=== PATIENT | male | born 1980 ===

== ENCOUNTER 2018-06-01 11:42 | Inpatient (IN) | payer OTHER ==
[2018-06-01] MEDS ORDERED: LORazepam 2 MG/ML INJ IV STA (12:10)
[2018-06-01] MEDS ORDERED: SODIUM CHLORIDE 0.9% 1,000 ML IV STA (12:10)
[2018-06-01] MEDS ORDERED: SODIUM CHLORIDE 0.9% 1,000 ML with MVI, ADULT NO.4 WITH VIT K 10 ML, THIAMINE 100 MG, F... IV ONE ×4 (12:11)
--- NOTE | 2018-06-01 12:13 | ED ---
Alcohol HPI - General Chief Complaint: Alcohol Stated Complaint: alcohol problems Time Seen by Provider: 06/01/18 12:00 Source: patient, RN notes reviewed Mode of arrival: ambulatory Limitations: no limitations - History of Present Illness Initial Comments: This is a 38-year-old male with a history of alcohol abuse who states she's been on a 28 bands ever since his mother on the first of this month. Sure how much she's been drinking he does admit to drinking today. He states she's been having auditory and visual hallucinations. He is been blacking out every day. He states he does desire rehab. MD Complaint: alcohol intoxication, alcohol withdrawal, desires rehab - Related Data Home Medications Medication Instructions Recorded Confirmed Tetrahydrozoline 0.05% Ophth 1 drop BOTH EYES QID 06/01/18 06/01/18 [Visine Eye Drops] Allergies Allergy/AdvReac Type Severity Reaction Status Date / Time ragweed pollen Allergy sneezing Verified 06/01/18 12:22 Review of Systems ROS Statement: Those systems with pertinent positive or pertinent negative responses have been documented in the HPI. ROS Other: All systems not noted in ROS Statement are negative. Past Medical History Additional Past Medical History / Comment(s): alcoholism, insomnia and chronic left wrist pain, medical marijuan History of Any Multi-Drug Resistant Organisms: None Reported Past Surgical History: Orthopedic Surgery Additional Past Surgical History / Comment(s): left wrist Past Psychological History: No Psychological Hx Reported Smoking Status: Never smoker Past Alcohol Use History: Abuse, Daily Past Drug Use History: Marijuana General Exam - General Exam Comments Initial Comments: This a well-developed well-nourished awake alert male oriented 3. He does have the smell of alcohol conjoiners on his breath Limitations: no limitations General appearance: alert, anxious Head exam: Present: atraumatic, normocephalic, normal inspection Eye exam: Present: normal appearance, PERRL, EOMI. Absent: scleral icterus, conjunctival injection, periorbital swelling ENT exam: Present: mucous membranes dry Neck exam: Present: normal inspection. Absent: tenderness, meningismus, lymphadenopathy Respiratory exam: Present: normal lung sounds bilaterally. Absent: respiratory distress, wheezes, rales, rhonchi, stridor Cardiovascular Exam: Present: normal rhythm, tachycardia, normal heart sounds. Absent: systolic murmur, diastolic murmur, rubs, gallop, clicks GI/Abdominal exam: Present: soft, normal bowel sounds. Absent: distended, tenderness, guarding, rebound, rigid Extremities exam: Present: normal inspection, full ROM, normal capillary refill. Absent: tenderness, pedal edema, joint swelling, calf tenderness Back exam: Present: normal inspection Neurological exam: Present: alert, oriented X3, CN II-XII intact Psychiatric exam: Present: normal affect, normal mood Skin exam: Present: warm, dry, intact, normal color. Absent: rash Course Vital Signs 06/01/18 06/01/18 11:51 15:12 Temperature 97.8 F Pulse Rate 107 H 92 Respiratory 18 16 Rate Blood Pressure 157/96 132/65 O2 Sat by Pulse 94 L 97 Oximetry Medical Decision Making - Medical Decision Making I did discuss findings with the patient he does demonstrate evidence of pancreatitis as well as alcohol withdrawal symptoms. The patient was seen by Dr. Cao in the emergency department. Patient will be admitted for inpatient evaluation. - Lab Data Result diagrams: 06/01/18 13:02 06/01/18 13:02 Lab Results 06/01/18 06/01/18 06/01/18 Range/Units 13:02 13:02 13:02 WBC 9.0 (3.8-10.6) k/uL RBC 4.99 (4.30-5.90) m/uL Hgb 15.6 (13.0-17.5) gm/dL Hct 47.8 (39.0-53.0) % MCV 95.9 (80.0-100.0) fL MCH 31.3 (25.0-35.0) pg MCHC 32.6 (31.0-37.0) g/dL RDW 13.4 (11.5-15.5) % Plt Count 343 (150-450) k/uL Neutrophils % 71 % Lymphocytes % 22 % Monocytes % 3 % Eosinophils % 1 % Basophils % 1 % Neutrophils # 6.4 (1.3-7.7) k/uL Lymphocytes # 2.0 (1.0-4.8) k/uL Monocytes # 0.3 (0-1.0) k/uL Eosinophils # 0.1 (0-0.7) k/uL Basophils # 0.1 (0-0.2) k/uL PT 9.9 (9.0-12.0) sec INR 1.0 (<1.2) Sodium 136 L (137-145) mmol/L Potassium 4.4 (3.5-5.1) mmol/L Chloride 98 (98-107) mmol/L Carbon Dioxide 20 L (22-30) mmol/L Anion Gap 18 mmol/L BUN 9 (9-20) mg/dL Creatinine 0.86 (0.66-1.25) mg/dL Est GFR (CKD-EPI)AfAm >90 (>60 ml/min/1.73 sqM) Est GFR (CKD-EPI)NonAf >90 (>60 ml/min/1.73 sqM) Glucose 113 H (74-99) mg/dL Calcium 10.0 (8.4-10.2) mg/dL Magnesium 2.0 (1.6-2.3) mg/dL Total Bilirubin 0.9 (0.2-1.3) mg/dL AST 66 H (17-59) U/L ALT 77 H (21-72) U/L Alkaline Phosphatase 117 (38-126) U/L Total Protein 8.4 H (6.3-8.2) g/dL Albumin 5.2 H (3.5-5.0) g/dL Amylase 131 H (30-110) U/L Lipase 1128 H (23-300) U/L Urine Color Urine Appearance (Clear) Urine pH (5.0-8.0) Ur Specific [place] (1.001-1.035) Urine Protein (Negative) Urine Glucose (UA) (Negative) Urine Ketones (Negative) Urine Blood (Negative) Urine Nitrite (Negative) Urine Bilirubin (Negative) Urine Urobilinogen (<2.0) mg/dL Ur Leukocyte Esterase (Negative) Urine RBC (0-5) /hpf Urine WBC (0-5) /hpf Urine Mucus (None) /hpf Urine Opiates Screen (NotDetected) Ur Oxycodone Screen (NotDetected) Urine Methadone Screen (NotDetected) Ur Propoxyphene Screen (NotDetected) Ur Barbiturates Screen (NotDetected) U Tricyclic Antidepress (NotDetected) Ur Phencyclidine Scrn (NotDetected) Ur Amphetamines Screen (NotDetected) U Methamphetamines Scrn (NotDetected) U Benzodiazepines Scrn (NotDetected) Urine Cocaine Screen (NotDetected) U Marijuana (THC) Screen (NotDetected) Serum Alcohol 221 mg/dL 06/01/18 Range/Units 13:53 WBC (3.8-10.6) k/uL RBC (4.30-5.90) m/uL Hgb (13.0-17.5) gm/dL Hct (39.0-53.0) % MCV (80.0-100.0) fL MCH (25.0-35.0) pg MCHC (31.0-37.0) g/dL RDW (11.5-15.5) % Plt Count (150-450) k/uL Neutrophils % % Lymphocytes % % Monocytes % % Eosinophils % % Basophils % % Neutrophils # (1.3-7.7) k/uL Lymphocytes # (1.0-4.8) k/uL Monocytes # (0-1.0) k/uL Eosinophils # (0-0.7) k/uL Basophils # (0-0.2) k/uL PT (9.0-12.0) sec INR (<1.2) Sodium (137-145) mmol/L Potassium (3.5-5.1) mmol/L Chloride (98-107) mmol/L Carbon Dioxide (22-30) mmol/L Anion Gap mmol/L BUN (9-20) mg/dL Creatinine (0.66-1.25) mg/dL Est GFR (CKD-EPI)AfAm (>60 ml/min/1.73 sqM) Est GFR (CKD-EPI)NonAf (>60 ml/min/1.73 sqM) Glucose (74-99) mg/dL Calcium (8.4-10.2) mg/dL Magnesium (1.6-2.3) mg/dL Total Bilirubin (0.2-1.3) mg/dL AST (17-59) U/L ALT (21-72) U/L Alkaline Phosphatase (38-126) U/L Total Protein (6.3-8.2) g/dL Albumin (3.5-5.0) g/dL Amylase (30-110) U/L Lipase (23-300) U/L Urine Color Light Yellow Urine Appearance Clear (Clear) Urine pH 5.5 (5.0-8.0) Ur Specific [place] 1.010 (1.001-1.035) Urine Protein 1+ H (Negative) Urine Glucose (UA) Negative (Negative) Urine Ketones 1+ H (Negative) Urine Blood Trace H (Negative) Urine Nitrite Negative (Negative) Urine Bilirubin Negative (Negative) Urine Urobilinogen <2.0 (<2.0) mg/dL Ur Leukocyte Esterase Negative (Negative) Urine RBC <1 (0-5) /hpf Urine WBC <1 (0-5) /hpf Urine Mucus Rare H (None) /hpf Urine Opiates Screen Not Detected (NotDetected) Ur Oxycodone Screen Not Detected (NotDetected) Urine Methadone Screen Not Detected (NotDetected) Ur Propoxyphene Screen Not Detected (NotDetected) Ur Barbiturates Screen Not Detected (NotDetected) U Tricyclic Antidepress Not Detected (NotDetected) Ur Phencyclidine Scrn Not Detected (NotDetected) Ur Amphetamines Screen Not Detected (NotDetected) U Methamphetamines Scrn Not Detected (NotDetected) U Benzodiazepines Scrn Not Detected (NotDetected) Urine Cocaine Screen Not Detected (NotDetected) U Marijuana (THC) Screen Detected H (NotDetected) Serum Alcohol mg/dL - Radiology Data Radiology results: report reviewed (I did review the imaging and report no acute findings.), image reviewed Disposition Clinical Impression: Alcoholic intoxication, Alcohol withdrawal syndrome, Acute pancreatitis Disposition: ADMITTED IP TO THIS [facility] Condition: Stable Referrals: None,Stated [Primary Care Provider] - 1-2 days
[2018-06-01 13:16] LABS: Basophils # (A) 0.1 k/uL (0-0.2); Basophils % (A) 1 %; Eosinophils # (A) 0.1 k/uL (0-0.7); Eosinophils % (A) 1 %; HCT 47.8 % (39.0-53.0); HGB 15.6 gm/dL (13.0-17.5); Lymphocytes % (A) 22 %; MCH 31.3 pg (25.0-35.0); MCHC 32.6 g/dL (31.0-37.0); MCV 95.9 fL (80.0-100.0); Mean Platelet Volume 6.4; Monocytes # (A) 0.3 k/uL (0-1.0); Monocytes % (A) 3 %; Neutrophils # (A) 6.4 k/uL (1.3-7.7); Neutrophils % (A) 71 %; Platelet Count 343 k/uL (150-450); RBC 4.99 m/uL (4.30-5.90); RDW 13.4 % (11.5-15.5)
[2018-06-01 13:22] LABS: Prothrombin Time 9.9 sec (9.0-12.0)
[2018-06-01 13:26] LABS: ALT 77 U/L (21-72); AST 66 U/L (17-59); Albumin 5.2 g/dL (3.5-5.0); Alkaline Phosphatase 117 U/L (38-126); Amylase 131 U/L (30-110); Anion Gap 18 mmol/L; Blood Urea Nitrogen 9 mg/dL (9-20); Carbon Dioxide 20 mmol/L (22-30); Chloride 98 mmol/L (98-107); Glucose 113 mg/dL (74-99); Lipase 1128 U/L (23-300); Potassium 4.4 mmol/L (3.5-5.1); Sodium 136 mmol/L (137-145); Total Bilirubin 0.9 mg/dL (0.2-1.3); Total Protein 8.4 g/dL (6.3-8.2)
[2018-06-01 13:39] LABS: Alcohol 221 mg/dL
[2018-06-01 14:08] LABS: Appearance,Urine Clear (Clear); Bilirubin,Urine Negative (Negative); Blood,Urine Trace (Negative); Color,Urine Light Yellow; Glucose,Urine (UA) Negative (Negative); Ketones,Urine 1+ (Negative); Leukocyte Esterase,Urine Negative (Negative); Mucus,Urine Rare /hpf; Nitrite,Urine Negative (Negative); PH, Urine 5.5 (5.0-8.0); Protein,Urine 1+ (Negative); RBC,Urine <1 /hpf (0-5); Urobilinogen,Urine <2.0 mg/dL (<2.0); WBC,Urine <1 /hpf (0-5)
[2018-06-01 14:23] LABS: Amphetamine Screen,Urine Not Detected (NotDetected); Barbiturate Screen,Urine Not Detected (NotDetected); Benzodiazepines Screen,Urine Not Detected (NotDetected); Cocaine Screen,Urine Not Detected (NotDetected); Methadone Screen, Urine Not Detected (NotDetected); Opiate Screen,Urine Not Detected (NotDetected); Oxycodone Screen, Urine Not Detected (NotDetected); Phencyclidine Screen,Urine Not Detected (NotDetected); Tricyclic Antidepressant,Urine Not Detected (NotDetected); Urn Cannabinoid Scrn Detected (NotDetected)
--- NOTE | 2018-06-01 14:26 | CT ---
EXAMINATION TYPE: CT brain wo con DATE OF EXAM: 06/01/2018 COMPARISON: None HISTORY: Hallucinations, going through detox CT DLP: 1201 mGycm. Automated Exposure Control for Dose Reduction was Utilized. TECHNIQUE: CT scan of the head is performed without contrast. FINDINGS: There is no acute intracranial hemorrhage or midline shift identified. Mild ventricular a nd sulcal prominence consistent with mild diffuse cerebral atrophy is noted. Serrano-white matter diffe rentiation is preserved. There is 1.7 cm mucous retention cyst or polyp in the anterior inferior left maxillary sinus. The globes are intact and the visualized sinuses otherwise are clear. IMPRESSION: No acute intracranial hemorrhage or midline shift is seen.
[2018-06-01] MEDS ORDERED: HALOPERIDOL LACTATE 5 MG/ML 1 ML VIAL IVP STA (14:43)
[2018-06-01] MEDS ORDERED: HALOPERIDOL LACTATE 5 MG/ML 1 ML VIAL IM PRN (14:45)
[2018-06-01 15:13] VITALS: RESP 16
[2018-06-01] MEDS ORDERED: TEMAZEPAM 15 MG CAP PO PRN (15:15)
[2018-06-01] MEDS ORDERED: HYDROcodone/APAP 5-325MG 1 EACH TAB PO PRN (15:15)
[2018-06-01] MEDS ORDERED: ACETAMINOPHEN TAB 500 MG TAB PO PRN (15:15)
--- NOTE | 2018-06-01 15:52 | HP ---
HISTORY AND PHYSICAL DATE OF SERVICE: 06/01/2018. CHIEF COMPLAINT: Alcohol withdrawal. HISTORY OF PRESENT ILLNESS: This 38-year-old gentleman with alcoholism and some chronic left wrist pain, medical marijuana being followed by no primary physician in the outpatient setting apparently binging on alcohol for the last 20 days. The patient last drink was today. Alcohol was more than 200. Patient admitted to the hospital for further evaluation and treatment. The patient complains of jitteriness. There is no history of fever , rigors. No headache, loss of consciousness or seizures. PAST MEDICAL HISTORY: History of alcohol, insomnia, chronic left wrist pain, medical marijuana. MEDICATIONS: Prior to admission include home medications are Visine eyedrops. ALLERGIES: RAGWEED. POLLEN. FAMILY HISTORY: No history of heart disease or strokes in the family. SOCIAL HISTORY: No history of smoking, history of THC and history of alcohol. REVIEW OF SYSTEMS: ENT: No diminished vision. No diminished hearing. CARDIOVASCULAR: No angina or palpitations. Respiration: No cough or hemoptysis. GI: No nausea, vomiting. : No dysuria. NERVOUS SYSTEM: No numbness or weakness. ALLERGY/IMMUNOLOGY: No asthma or hayfever. Musculoskeletal: As mentioned earlier. Hematology/Oncology: No history of anemia. Endocrine: No history of diabetes or hypothyroidism. Constitutional: As mentioned earlier. Dermatology: Negative. Rheumatology: Negative. Psychiatry: As mentioned earlier. PHYSICAL EXAMINATION: Alert and oriented x3. The pulse is 107. Blood pressure 157/96, respiration 18 , temperature 97.2, pulse ox 94 percent on room air. HEENT: Conjunctivae normal. Oral mucosa moist. Neck is no jugular venous distention. No carotid bruit. No lymph node enlargement. Cardiovascular: S1, S2. No S3, no S4. Respiratory: Breath sounds diminished in the bases. A few scattered rhonchi. No crackles. ABDOMEN: Soft, nontender. No mass palpable. Legs: No edema. No swelling. NERVOUS SYSTEM: Higher functions as mentioned earlier. Moves all four extremities. No focal motor or sensory deficits. Lymphatics: No lymph nodes palpable in the neck, axillae or groin. Skin: No ulcer, rashes or bleeding. LABS: At this time WBC within normal limits. Otherwise, sodium 136, otherwise AST 66, ALT 77, and total protein is 8.4. Amylase 131, lipase is 1128. UA noted. ASSESSMENT: 1. Acute alcoholism intoxication as well as alcohol withdrawal. 2. Hypertension. 3. Increased AST, ALT, alcoholic hepatitis. 4. Increased amylase, lipase, pancreatitis. 5. Hyponatremia. 6. History of insomnia. 7. Chronic left wrist pain. 8. History of medical marijuana. RECOMMENDATION AND DISCUSSION: In this 38-year-old gentleman who presented with multiple complex medical issues. We will monitor the patient closely, continue the current medications, management and symptomatic treatment. We will initiate CIWA protocol, Haldol, banana bag with multivitamins. Continue to monitor. Guarded prognosis. 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 Guarded prognosis because of multiple complex medical issues. Elena Escamilla. Further recommendations to follow. Also recommend the patient follow up with primary physician closely in the outpatient setting. MMSKYLERL / JEWELSN: [id number] / MTDD
[2018-06-01] MEDS ORDERED: NALOXONE 0.4 MG/ML 1 ML VIAL IV PRN (15:55)
[2018-06-01] MEDS ORDERED: THIAMINE 100 MG/ML 2 ML VIAL IM STA (15:58)
[2018-06-01] MEDS ORDERED: LORazepam 2 MG/ML INJ IV PRN ×2 (15:58)
[2018-06-01] MEDS ORDERED: SODIUM CHLORIDE 0.9% 1,000 ML IV SCH (16:00)
[2018-06-01] MEDS ORDERED: THIAMINE 100 MG TAB PO SCH (17:00)
[2018-06-01] MEDS: TETRAHYDROZOLINE 0.05% OPHTH DROPS 15 ML BTL BOTH EYES SCH ×2 (18:04→23:09)
[2018-06-01] MEDS: SODIUM CHLORIDE 0.9% 1,000 ML with POTASSIUM CHLORIDE 20 MEQ, MVI, ADULT NO.4 WITH VIT ... IV SCH ×5 (18:54)
[2018-06-01] MEDS: LORazepam 2 MG/ML INJ IV PRN (20:40)
[2018-06-01] MEDS: HEPARIN SODIUM,PORCINE 5,000 UNIT/ML 1 ML VIAL SQ SCH ×2 (23:09→23:14)
[2018-06-01] MEDS: PANTOPRAZOLE 40 MG/10 ML VIAL IVP SCH (23:09)
[2018-06-02] MEDS: LORazepam 2 MG/ML INJ IV PRN ×2 (04:53→14:46)
[2018-06-02] MEDS: SODIUM CHLORIDE 0.9% 1,000 ML with POTASSIUM CHLORIDE 20 MEQ, MVI, ADULT NO.4 WITH VIT ... IV SCH ×10 (06:00→12:22)
[2018-06-02] MEDS ORDERED: PANTOPRAZOLE 40 MG TABLET PO SCH (07:30)
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
[2018-06-02] MEDS: PANTOPRAZOLE 40 MG/10 ML VIAL IVP SCH (08:40)
[2018-06-02] MEDS: TETRAHYDROZOLINE 0.05% OPHTH DROPS 15 ML BTL BOTH EYES SCH ×2 (08:41→12:24)
[2018-06-02] MEDS: HEPARIN SODIUM,PORCINE 5,000 UNIT/ML 1 ML VIAL SQ SCH (08:41)
[2018-06-02 08:43] LABS: Basophils # (A) 0.1 k/uL (0-0.2); Basophils % (A) 1 %; Eosinophils % (A) 0 %; HCT 45.4 % (39.0-53.0); HGB 15.1 gm/dL (13.0-17.5); Lymphocytes # (A) 1.1 k/uL (1.0-4.8); Lymphocytes % (A) 12 %; MCH 32.1 pg (25.0-35.0); MCHC 33.3 g/dL (31.0-37.0); MCV 96.4 fL (80.0-100.0); Monocytes # (A) 0.6 k/uL (0-1.0); Monocytes % (A) 6 %; Neutrophils # (A) 7.2 k/uL (1.3-7.7); Neutrophils % (A) 79 %; Platelet Count 250 k/uL (150-450); RBC 4.71 m/uL (4.30-5.90); RDW 12.9 % (11.5-15.5); WBC 9.2 k/uL (3.8-10.6)
[2018-06-02] MEDS ORDERED: SODIUM CHLORIDE 0.9% 1,000 ML IV SCH (08:45)
[2018-06-02 09:06] LABS: ALT 70 U/L (21-72); AST 64 U/L (17-59); Albumin 4.3 g/dL (3.5-5.0); Alkaline Phosphatase 89 U/L (38-126); Amylase 66 U/L (30-110); Anion Gap 10 mmol/L; Blood Urea Nitrogen 9 mg/dL (9-20); Calcium 9.3 mg/dL (8.4-10.2); Carbon Dioxide 24 mmol/L (22-30); Chloride 103 mmol/L (98-107); Cholesterol 247 mg/dL (<200); Glucose 89 mg/dL (74-99); Lipase 139 U/L (23-300); Potassium 4.5 mmol/L (3.5-5.1); Sodium 137 mmol/L (137-145); Total Bilirubin 2.1 mg/dL (0.2-1.3); Total Protein 7.1 g/dL (6.3-8.2); Triglycerides 56 mg/dL (<150)
[2018-06-02 09:13] LABS: LDL Cholesterol,Calculated 112 mg/dL (0-99)
[2018-06-02 09:15] LABS: HDL Cholesterol 124 mg/dL (40-60)
[2018-06-02] MEDS ORDERED: THIAMINE 100 MG TAB PO SCH (12:00)
--- NOTE | 2018-06-02 12:31 | US ---
EXAMINATION TYPE: US abdomen limited DATE OF EXAM: 06/02/2018 COMPARISON: NONE CLINICAL HISTORY: pancreatitis abdominal pain. Abdomen pain EXAM MEASUREMENTS: Liver Length: 18.7 cm Gallbladder Wall: 0.1 cm CBD: 0.3 cm Right Kidney: 11.2 x 5.0 x 5.6 cm Pancreas: visualized portions wnl, limited by overlying midline bowel gas Liver: mildly enlarged Gallbladder: wnl Evidence for sonographic Connor's sign: no CBD: visualized portions wnl, limited by overlying bowel gas Right Kidney: wnl Significant portions of pancreatic head and tail are scattered by overlying bowel gas on images saved . Visualized portion of liver is heterogeneously hyperechoic without intrahepatic ductal dilatation o r suspicious masses seen on images saved. Liver appears enlarged. IMPRESSION: No gallstones or ultrasound evidence for acute cholecystitis. Probable enlarged liver wit h diffuse fatty infiltration.
[2018-06-02 15:26] VITALS: BP 124/77; PULSE 81; TEMP 98.7
[2018-06-02 20:25] LABS: Hepatitis A Antibody IgM Non-Reactive (Non-Reactive); Hepatitis B Core IgM Non-Reactive (Non-Reactive)
[2018-06-03] MEDS ORDERED: PANTOPRAZOLE 40 MG/10 ML VIAL IVP SCH (09:00)
--- NOTE | 2018-06-03 21:45 | DS ---
DISCHARGE SUMMARY DATE OF SERVICE: 06/02/2018. FINAL DIAGNOSES: 1. Acute alcoholism intoxication as well as alcohol withdrawal. 2. Hypertension. 3. Increased AST, ALT. 4. Alcoholic hepatitis. 5. Increased amylase, lipase. 6. Mild pancreatitis secondary to alcohol. 7. Hyponatremia. 8. History of insomnia. 9. Chronic left wrist pain. 10.History of medical marijuana. DISCHARGE DISPOSITION: The patient is being discharged in stable condition with guarded prognosis. HISTORY OF PRESENT ILLNESS: This is a 38-year-old gentleman, admitted with acute alcohol intoxication, was admitted with early delirium tremens, treated symptomatically. Patient improved significantly. On exam, vitals are stable. Cardiovascular S1, S2. Abdomen soft. Nervous system: No focal deficits. Abdominal ultrasound was noted. Showed no gallstones. Recommend EtOH cessation, AA meetings and counseling in the outpatient setting and possible rehab. On exam, vital signs are stable. Cardiovascular: S1, S2. Abdomen soft. Central nervous system: No focal deficits. DISCHARGE ADVICE AND MEDICATIONS: 1. Discharge diet is cardiac. 2. No EtOH. 3. Activity limited until follow up. 4. Follow up with Dr. Umair Robb in 2-3 days. 5. Follow up with Gastroenterology as recommended. MEDICATIONS ARE: 1. Visine 1 drop b.i.d. 2. Folic acid 1 mg daily. 3. Ativan 1 mg t.i.d. p.r.n. 4. Protonix 40 mg daily. 5. Thiamin 100 mg p.o. daily. Once again, the patient is being discharged in stable condition with guarded prognosis. MMODL / IJN: [id number] /
== END 2018-06-02 17:09 | disposition home or self-care (01) | DRG 896 ==
LOC: EC 11:42 → 4MS4W 15:54
PROVIDERS: ADMIT Hospitalist; ATTEND Hospitalist
DX: F10.231 Alcohol dependence with withdrawal delirium (principal); K85.20 Alcohol induced acute pancreatitis without necrosis or infection; E87.1 Hypo-osmolality and hyponatremia; F10.221 Alcohol dependence with intoxication delirium; K70.10 Alcoholic hepatitis without ascites; I10 Essential (primary) hypertension; M25.532 Pain in left wrist; Y90.7 Blood alcohol level of 200-239 mg/100 ml; G47.00 Insomnia, unspecified; L30.9 Dermatitis, unspecified; M19.91 Primary osteoarthritis, unspecified site; F17.200 Nicotine dependence, unspecified, uncomplicated; Z79.899 Other long term (current) drug therapy; Z88.9 Allergy status to unspecified drugs, medicaments and biological substances
CPT/HCPCS: 36415; 70450; 76705; 80053; 80061; 80074; 80306; 80320; 81001; 82075; 82150; 83690; 83735; 85025; 85610; 96365; 96366; 96375; 99285